=== PATIENT | male | born 1950 | race Caucasian/White ===

== ENCOUNTER 2021-03-03 04:33 | Emergency (ER) | payer MEDICARE, MEDICAID ==
[~2021-03-03] VITALS: Ht 180.3 cm; Wt 65.0 kg
[~2021-03-03 04:33] MED LIST: DEXL60CA3 PO; MOT200T PO
[2021-03-03 06:34] VITALS: BP 112/64
--- NOTE | 2021-03-03 06:48 | NUR ---
Note karli in EDM - 03/03/21 at 0650 by NIKHIL Discussed pt's continuing nausea w/ edmd christensen; new order for Reglan and NS bolus received. Currently tx and dc.
[2021-03-03] MEDS ORDERED: normal saline 1000ml 1,000 ML IV ONE (06:50)
[2021-03-03] MEDS ORDERED: metoclopramide 5 mg/ml inj IV ONE (06:50)
--- NOTE | 2021-03-03 07:12 | NUR ---
Entered pt's room to start IV and redraw labs. Pt refusing IV start & labs. He began shouting stating he wanted to leave and started throwing bed clothes on ground. EDMD Baehr notified who explained current dx and need for additional labs to further identify mass found on lungs. Pt initially calmed, but then became agitated once again. Pt elected to leave AMA after signing documentation and verbalizing understanding of risks associated with care refusal.
== END 2021-03-03 07:23 | disposition left against medical advice (07) ==
LOC: ER 04:34
DX: R91.8 Other nonspecific abnormal finding of lung field (principal); F32.9 Major depressive disorder, single episode, unspecified; G89.29 Other chronic pain; M54.9 Dorsalgia, unspecified; Z56.0 Unemployment, unspecified; Z88.0 Allergy status to penicillin; Z88.1 Allergy status to other antibiotic agents; Z88.8 Allergy status to other drugs, medicaments and biological substances
CPT/HCPCS: 71045; 71250; 93005; 99284